=== PATIENT | male | born 1995 | race Hispanic/Latino ===

== ENCOUNTER 2020-02-23 19:53 | Emergency (ER) | payer BC ==
[~2020-02-23] VITALS: Ht 165.1 cm; Wt 117.9 kg
--- OUTSIDE RECORDS SUMMARY | 2020-02-23 19:56 | XMS REPORT | CCD ---
Author Author Auto RUTHIE Hansen [facility] Address Unknown Phone Unavailable Care Team Providers Care Commercial Singer Name Role Phone Murphy Rehman CP Allergies, Adverse Reactions, Alerts Substance Reaction Status NKDA Active Medications Medication Instructions Start Date End Date Status Zofran 4 mg, 2 mL, Route: IVP, Drug form: 10/05/201309/10 Completed INJ, ONCE, Dosing Weight 87.273, kg, Priority: STAT, Start date: 10/05/13 5:34:00, Stop date: 10/05/13 5:34:00(Same as: Zofran) Sodium Chloride 0.9% 1,000 mL, Rate: 1,000 ml/hr, Infuse 09/1010/05/2013 Completed (Bolus) IV 1,000 mL over: 1 hr, Route: IV, Dosi ng Weight 87.273 kg, Total Volume: 1,000, Priority: STAT, Start date: 10/05/13 5:34:00, Duration: 1 doses or times, Stop date: 10/05/13 6:33:00, Bolus Dose Bolus Dose Zofran ODT 4 mg oral 4 mg = 1 tab, PO, BID, Nausea and 2012 Ordered tablet, Vomiting, Dissolve tab unde r disintegrating tongue, # 10 tab, 0 Refill( s) Dissolve tab under tongue Vital Signs Most recent to oldest [Reference Range]: 1 2 Height 165.1 cm (10/05/2013 03:41:00) Temperature Oral [96.4-99.1 DegF] 98.5 DegF (10/05/2013 06:55:00) 99.1 DegF (10/05/2013 03:41:00) Systolic Blood Pressure [90-140 mmHg] 120 mmHg (10/05/2013 06:55:00) 122 mmHg (10/05/2013 03:41:00) Diastolic Blood Pressure [60-90 mmHg] 78 mmHg (10/05/2013 06:55:00) 84 mmHg (10/05/2013 03:41:00) Respiratory Rate [14-20 BRMIN] 18 BRMIN (10/05/2013 06:55:00) 18 BRMIN (10/05/2013 03:41:00) Peripheral Pulse Rate [60-100 bpm] 88 bpm (10/05/2013 06:55:00) 122 bpm *HI* (10/05/2013 03:41:00) Weight 87.273 kg (10/05/2013 03:41:00)
--- OUTSIDE RECORDS SUMMARY | 2020-02-23 19:56 | XMS REPORT | CCD ---
Author Author Auto RUTHIE Hansen [facility] Address Unknown Phone Unavailable Care Team Providers Care Trim Sawyer Name Role Phone Candelario Allison CP [phone] Allergies, Adverse Reactions, Alerts Substance Reaction Status NKDA Active Vital Signs Most recent to oldest [Reference Range]: 1 2 Height 165.10 cm (10/20/2011 18:39:00) Temperature Oral [96.8-99.7 DegF] 97.7 DegF (10/20/2011 23:55:00) 98.8 DegF (10/20/2011 18:39:00) Systolic Blood Pressure [90-138 mmHg] 134 mmHg (10/20/2011 23:55:00) 138 mmHg (10/20/2011 18:39:00) Diastolic Blood Pressure [45-84 mmHg] 75 mmHg (10/20/2011 23:55:00) 68 mmHg (10/20/2011 18:39:00) Respiratory Rate [14-20 BRMIN] 20 BRMIN (10/20/2011 23:55:00) 20 BRMIN (10/20/2011 18:39:00) Peripheral Pulse Rate [55-90 bpm] 100 bpm *HI* (10/20/2011 23:55:00) 111 bpm *HI* (10/20/2011 18:39:00) Weight 94.545 kg (10/20/2011 18:39:00)
--- OUTSIDE RECORDS SUMMARY | 2020-02-23 19:56 | XMS REPORT | Summary of Care ---
Author Author [facility] Organization [facility] Address Unknown Phone Unavailable Encounter JAD Herbert(GEETA) [id number] Date(s): 10/12/19 - 10/12/19 [facility] [address] [employer] provided by [facility] [place] [address]- Encounter Diagnosis Sinus tachycardia (Discharge Diagnosis) - 10/12/19 Fever (Discharge Diagnosis) - 10/12/19 Discharge Disposition: Home or Self Care Attending Physician: Mac Bryant MD Vital Signs 1 2 3 Most recent to oldest [Reference Range]: 100.4 DegF *HI* (10/12/19 5:36 PM) 100 DegF *HI* (10/12/19 3:13 PM) 101.7 DegF *HI* (10/12/19 1:23 PM) Temperature Oral [96.4-99.1 DegF] 147/66 mmHg *HI* (10/12/19 5:36 PM) 142/59 mmHg *HI* (10/12/19 4:29 PM) 146/70 mmHg *HI* (10/12/19 3:13 PM) Blood Pressure [90-140/60-90 mmHg] 16 BRMIN (10/12/19 5:36 PM) 15 BRMIN (10/12/19 4:29 PM) 17 BRMIN (10/12/19 3:13 PM) Respiratory Rate [14-20 BRMIN] 161 bpm *HI* (10/12/19 1:23 PM) Peripheral Pulse Rate [60-100 bpm] 118.182 kg (10/12/19 1:23 PM) Weight Problem List No data available for this section Allergies, Adverse Reactions, Alerts No Known Medication Allergies Medications Isolyte S PH-7.4 (Bolus) IV 1,000 mL, 1000 ml/hr, Infuse Over: 1 hr, Route: IV, 1,000, Drug form: SOLN, ONCE , Priority: STAT, Dosing Weight 118.182 kg, Start date: 10/12/19 13:29:00 MARINE ENGINEERING PROFESSOR, S top date: 10/12/19 13:29:00 MARINE ENGINEERING PROFESSOR, 0 Notes: (Same as: Isolyte S PH7.4, Normosol-R PH 7.4, Plasma-Lyte A ) Start Date: 10/12/19 Stop Date: 10/12/19 Status: Completed Isolyte S PH-7.4 (Bolus) IV 1,000 mL, 1000 ml/hr, Infuse Over: 1 hr, Route: IV, 1,000, Drug form: SOLN, ONCE , Priority: STAT, Dosing Weight 118.182 kg, Start date: 10/12/19 14:38:00 MARINE ENGINEERING PROFESSOR, S top date: 10/12/19 14:38:00 MARINE ENGINEERING PROFESSOR, 0 Notes: (Same as: Isolyte S PH7.4, Normosol-R PH 7.4, Plasma-Lyte A ) Start Date: 10/12/19 Stop Date: 10/12/19 Status: Completed Isolyte S PH-7.4 (Bolus) IV 1,000 mL, Route: IV, ONCE, Priority: STAT, Dosing Weight 118.182 kg, Start date: 10/12/19 16:36:00 MARINE ENGINEERING PROFESSOR, Stop date: 10/12/19 16:36:00 MARINE ENGINEERING PROFESSOR Start Date: 10/12/19 Stop Date: 10/12/19 Status: Completed Tylenol 1,000 mg, 2 tab, Route: PO, Drug form: TAB, ONCE, Dosing Weight 118.182, kg, Reshma ority: STAT, Start date: 10/12/19 13:29:00 MARINE ENGINEERING PROFESSOR, Stop date: 10/12/19 13:29:00 MARINE ENGINEERING PROFESSOR , 0 Notes: Max acetaminophen 4000 mg/day (4 gm/day). (Same as: Tylenol Extra Streng th) Start Date: 10/12/19 Stop Date: 10/12/19 Status: Completed Results Most recent to 1 oldest [Reference Range]: Neutrophils # 6.3 K/CMM [1.5-8.1 K/CMM] (10/12/19 2:05 PM) Lymphocytes # 1.2 K/CMM [1.0-5.5 K/CMM] (10/12/19 2:05 PM) Monocytes # [0.0-0.8 0.9 K/CMM K/CMM] *HI* (10/12/19 2:05 PM) Eosinophils # 0.1 K/CMM [0.0-0.5 K/CMM] (10/12/19 2:05 PM) Basophils # [0.0-0.2 0.1 K/CMM K/CMM] (10/12/19 2:05 PM) eGFR 97 mL/min/1.73m2 1 *NA* (10/12/19 2:05 PM) AGAP [10.0-20.0 16.7 mEq/L mEq/L] (10/12/19 2:05 PM) Basophils [0.0-1.0 0.7 % %] (10/12/19 2:05 PM) BUN [7-22 mg/dL] 14 mg/dL (10/12/19 2:05 PM) Calcium Lvl 8.3 mg/dL [8.5-10.5 mg/dL] *LOW* (10/12/19 2:05 PM) Chloride Lvl [95-109 103 mEq/L mEq/L] (10/12/19 2:05 PM) CO2 [24-32 mEq/L] 21 mEq/L *LOW* (10/12/19 2:05 PM) Creatinine Lvl 1.06 mg/dL [0.50-1.40 mg/dL] (10/12/19 2:05 PM) Eosinophils [0.0-4.0 1.1 % %] (10/12/19 2:05 PM) Glucose Lvl [70-99 116 mg/dL mg/dL] *HI* (10/12/19 2:05 PM) Hct [42.0-54.0 %] 42.5 % (10/12/19 2:05 PM) Hgb [14.0-18.0 g/dL] 14.9 g/dL (10/12/19 2:05 PM) Potassium Lvl 3.7 mEq/L [3.5-5.1 mEq/L] (10/12/19 2:05 PM) Lymphocytes 13.8 % [20.0-40.0 %] *LOW* (10/12/19 2:05 PM) MCH [27.0-31.0 pg] 30.0 pg (10/12/19 2:05 PM) MCHC [32.0-36.0 34.9 g/dL g/dL] (10/12/19 2:05 PM) MCV [80.0-94.0 fL] 85.8 fL (10/12/19 2:05 PM) Monocytes [2.0-12.0 10.7 % %] (10/12/19 2:05 PM) MPV [7.4-10.4 fL] 8.0 fL (10/12/19 2:05 PM) Sodium Lvl [135-145 137 mEq/L mEq/L] (10/12/19 2:05 PM) Platelet [133-450 201 K/CMM K/CMM] (10/12/19 2:05 PM) Segs [45.0-75.0 %] 73.7 % (10/12/19 2:05 PM) RBC [4.70-6.10 4.95 M/CMM M/CMM] (10/12/19 2:05 PM) RDW [11.5-14.5 %] 13.8 % (10/12/19 2:05 PM) WBC [3.7-10.4 K/CMM] 8.5 K/CMM (10/12/19 2:05 PM) 1Result Comment: The eGFR is calculated using the CKD-EPI formula. In most young, healthy individuals the eGFR will be >90 mL/min/1.73m2. The eGFR declines with age. An eGFR of 60-89 may be normal in some populations, particularly the elderly, for whom the CKD-EPI formula has not been extensively validated. Use of the eGFR is not recommended in the following populations: Individuals with unstable creatinine concentrations, including patients and those with serious co-morbid conditions. Patients with extremes in muscle mass or diet. The data above are obtained from the National Kidney Disease Education Program ( NKDEP) which additionally recommends that when the eGFR is used in patients with extremes of body mass index for purposes of drug dosing, the eGFR should be mul tiplied by the estimated BMI. 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
--- OUTSIDE RECORDS SUMMARY | 2020-02-23 19:56 | XMS REPORT | CCD ---
Author Author Auto RUTHIE Hansen [facility] Address Unknown Phone Unavailable Care Team Providers Care Boarding Specialist Name Role Phone Terry Aguilera CP Allergies, Adverse Reactions, Alerts Substance Reaction Status NKDA Active Medications Medication Instructions Start Date End Date Status Tylenol with Codeine 10 cc, PO, Q4H, PRN, 240 mL, pain, 12/10 Ordered 120 mg-12 mg/5 mL Substitution Allowed, Maint enance oral liquid Toradol 30 mg/mL 30 mg, Route: IM, Drug form: INJ, 12/11/2011 12/11/2011 Completed injectable solution ONCE, Start date: 12/11/11 8:37:00, Stop date: 12/11/11 8:37:00 Vital Signs Most recent to oldest [Reference Range]: 1 Height 165.10 cm (12/11/2011 06:39:00) Weight 92.727 kg (12/11/2011 06:39:00) Results URINALYSIS Most recent to oldest [Reference Range]: 1 UA Turbidity [Clear] Clear (12/11/2011 06:55:00) UA Color [Yellow] Yellow *NA* (12/11/2011 06:55:00) UA pH [5.0-8.0] 7.5 (12/11/2011 06:55:00) UA Spec Grav [<=1.030] 1.010 (12/11/2011 06:55:00) UA Glucose [Negative] Negative (12/11/2011 06:55:00) UA Blood [Negative] Large *ABN* (12/11/2011 06:55:00) UA Ketones [Negative] Negative *NA* (12/11/2011 06:55:00) UA Protein [Negative] Trace *ABN* (12/11/2011 06:55:00) UA Urobilinogen [0.1-1.0 EU/dL] 0.2 EU/dL (12/11/2011 06:55:00) UA Bili [Negative] Negative *NA* (12/11/2011 06:55:00) UA Leuk Est [Negative] Negative (12/11/2011 06:55:00) UA Nitrite [Negative] Negative (12/11/2011 06:55:00) UA WBC [None Seen] None Seen (12/11/2011 06:55:00) UA RBC [0-2 /HPF] 6-10 /HPF *ABN* (12/11/2011 06:55:00) UA Bacteria [None Seen /HPF] Occasional /HPF (12/11/2011 06:55:00) UA Sq Epi [Few /LPF] Few /LPF (12/11/2011 06:55:00)
--- OUTSIDE RECORDS SUMMARY | 2020-02-23 19:56 | XMS REPORT | Summary of Care ---
Author Author [facility] Organization [facility] Address Unknown Phone Unavailable Encounter JAD Herbert(GEETA) [id number] Date(s): 12/16/15 - 12/16/15 [facility] [address] [place] [address]- Discharge Diagnosis: Food poisoning Discharge Diagnosis: Acute infective gastroenteritis Discharge Disposition: Home Attending Physician: Matti Swan MD Vital Signs 1 2 3 Most recent to oldest [Reference Range]: 165.1 cm (12/16/15 4:10 PM) Height 98.5 DegF (12/16/15 10:36 PM) 99.1 DegF (12/16/15 9:05 PM) 98.2 DegF (12/16/15 4:10 PM) Temperature Oral [96.4-99.1 DegF] 125/76 mmHg (12/16/15 10:36 PM) 113/62 mmHg (12/16/15 9:05 PM) 110/62 mmHg (12/16/15 4:10 PM) Blood Pressure [90-140/60-90 mmHg] 16 BRMIN (12/16/15 10:36 PM) 18 BRMIN (12/16/15 9:05 PM) 20 BRMIN (12/16/15 4:10 PM) Respiratory Rate [14-20 BRMIN] 119 bpm *HI* (12/16/15 10:36 PM) 125 bpm *HI* (12/16/15 9:05 PM) 127 bpm *HI* (12/16/15 4:10 PM) Peripheral Pulse Rate [60-100 bpm] 100 kg (12/16/15 4:10 PM) Weight 36.69 m2 (12/16/15 4:10 PM) Body Mass Index Problem List No data available for this section Allergies, Adverse Reactions, Alerts Substance Reaction Severity Status NKDA Active Medications Bentyl 20 mg, 2 mL, Route: IM, Drug form: INJ, ONCE, Dosing Weight 100, kg, Start date: 12/16/15 16:20:00, Stop date: 12/16/15 16:20:00 Notes: (Same as: Bentyl) Start Date: 12/16/15 Stop Date: 12/16/15 Status: Completed Lomotil oral tablet 1 tab, PO, QID, PRN for loose stool, X 7 day, # 28 tab, 0 Refill(s) Start Date: 12/16/15 Stop Date: 12/23/15 Status: Ordered morphine Sulfate 4 mg, 2 mL, Route: IVP, Drug form: INJ, ONCE, Dosing Weight 100, kg, Priority: S TAT, Start date: 12/16/15 16:20:00, Stop date: 12/16/15 16:20:00 Notes: (Same as:MORPhine Sulfate) Start Date: 12/16/15 Stop Date: 12/16/15 Status: Completed ondansetron 4 mg, 2 mL, Route: IVP, Drug form: INJ, ONCE, Dosing Weight 100, kg, Priority: S TAT, Start date: 12/16/15 16:20:00, Stop date: 12/16/15 16:20:00 Notes: (Same as: Page) MEDICATION WASTE Product Size: 4 mgProduct Was alfred: ___ mg Start Date: 12/16/15 Stop Date: 12/16/15 Status: Completed promethazine 25 mg oral tablet 25 mg = 1 tab, PO, Q8H, PRN Nausea/Vomiting, X 10 day, # 30 tab, 0 Refill(s) Start Date: 12/16/15 Stop Date: 12/26/15 Status: Ordered Saline Flush 0.9% 10 mL, Route: IVP, Drug Form: INJ, Dosing Weight 100, kg, PRN, PRN Line Flush, S tart date: 12/16/15 16:20:00, Duration: 30 day, Stop date: 01/15/16 17:19:00 Notes: (Same as: BD Posiflush) Start Date: 12/16/15 Stop Date: 12/17/15 Status: Discontinued Sodium Chloride 0.9% (Bolus) IV 1,000 mL, 1,000 ml/hr, Infuse Over: 1 Hour, Route: IV, ONCE, Priority: STAT, Dos ing Weight 100 kg, Start date: 12/16/15 21:21:00, Duration: 1 doses or times, St op date: 12/16/15 21:21:00 Start Date: 12/16/15 Stop Date: 12/16/15 Status: Completed Sodium Chloride 0.9% (Bolus) IV 1,000 mL, 1000 ml/hr, Infuse Over: 1 hr, Route: IV, 1,000, Drug form: INJ, ONCE, Priority: STAT, Dosing Weight 100 kg, Start date: 12/16/15 16:20:00, Duration: 1 doses or times, Stop date: 12/16/15 16:20:00 Start Date: 12/16/15 Stop Date: 12/16/15 Status: Completed Sodium Chloride 0.9% (Bolus) IV 1,000 mL, 1,000 ml/hr, Infuse Over: 1 hr, Route: IV, ONCE, Priority: STAT, Dosin g Weight 100 kg, Start date: 12/16/15 21:12:00, Duration: 1 doses or times, Stop date: 12/16/15 21:12:00 Start Date: 12/16/15 Stop Date: 12/16/15 Status: Completed Results ELECTROLYTES Most recent to 1 oldest [Reference Range]: Sodium Lvl [135-145 136 mEq/L mEq/L] (12/16/15 4:38 PM) Potassium Lvl 4.0 mEq/L [3.5-5.1 mEq/L] (12/16/15 4:38 PM) Chloride Lvl [95-109 104 mEq/L mEq/L] (12/16/15 4:38 PM) CO2 [24-32 mEq/L] 23 mEq/L *LOW* (12/16/15 4:38 PM) AGAP [10.0-20.0 13.0 mEq/L mEq/L] (12/16/15 4:38 PM) CHEM PANEL Most recent to 1 oldest [Reference Range]: Creatinine Lvl 1.07 mg/dL [0.50-1.40 mg/dL] (12/16/15 4:38 PM) eGFR 99 mL/min/1.73m2 1 *NA* (12/16/15 4:38 PM) BUN [7-22 mg/dL] 19 mg/dL (12/16/15 4:38 PM) B/C Ratio [6-25] 18 (12/16/15 4:38 PM) Glucose Lvl [70-99 118 mg/dL mg/dL] *HI* (12/16/15 4:38 PM) Total Protein 8.7 g/dL [6.4-8.4 g/dL] *HI* (12/16/15 4:38 PM) Albumin Lvl [3.5-5.0 4.5 g/dL g/dL] (12/16/15 4:38 PM) Globulin [2.0-4.0 4.2 g/dL g/dL] *HI* (12/16/15 4:38 PM) A/G Ratio [0.7-1.6] 1.1 (12/16/15 4:38 PM) Calcium Lvl 9.1 mg/dL [8.5-10.5 mg/dL] (12/16/15 4:38 PM) ALT [0-65 unit/L] 58 unit/L (12/16/15 4:38 PM) AST [0-37 unit/L] 20 unit/L (12/16/15 4:38 PM) Alk Phos [39-136 149 unit/L unit/L] *HI* (12/16/15 4:38 PM) Bili Total [0.2-1.3 1.0 mg/dL mg/dL] (12/16/15 4:38 PM) Lipase Lvl [73-393 116 unit/L unit/L] (12/16/15 4:38 PM) 1Result Comment: The eGFR is calculated [...] be mul tiplied by the estimated BMI. HEMATOLOGY Most recent to 1 oldest [Reference Range]: WBC [3.7-10.4 K/CMM] 17.1 K/CMM *HI* (12/16/15 4:38 PM) RBC [4.70-6.10 6.20 M/CMM M/CMM] *HI* (12/16/15 4:38 PM) Hgb [14.0-18.0 g/dL] 17.7 g/dL (12/16/15 4:38 PM) Hct [42.0-54.0 %] 52.3 % (12/16/15 4:38 PM) MCV [80.0-94.0 fL] 84.4 fL (12/16/15 4:38 PM) MCH [27.0-31.0 pg] 28.5 pg (12/16/15 4:38 PM) MCHC [32.0-36.0 33.8 g/dL g/dL] (12/16/15 4:38 PM) RDW [11.5-14.5 %] 13.7 % (12/16/15 4:38 PM) Platelet [133-450 261 K/CMM K/CMM] (12/16/15 4:38 PM) MPV [7.4-10.4 fL] 8.2 fL (12/16/15 4:38 PM) Segs [45.0-75.0 %] 89.9 % *HI* (12/16/15 4:38 PM) Lymphocytes 5.1 % [20.0-40.0 %] *LOW* (12/16/15 4:38 PM) Monocytes [2.0-12.0 4.5 % %] (12/16/15 4:38 PM) Eosinophils [0.0-4.0 0.3 % %] (12/16/15 4:38 PM) Basophils [0.0-1.0 0.2 % %] (12/16/15 4:38 PM) Segs-Bands # 15.4 K/CMM [1.5-8.1 K/CMM] *HI* (12/16/15 4:38 PM) Lymphocytes # 0.9 K/CMM [1.0-5.5 K/CMM] *LOW* (12/16/15 4:38 PM) Monocytes # [0.0-0.8 0.8 K/CMM K/CMM] (12/16/15 4:38 PM) Immunizations No data available for this section Procedures No data available for this section Social History Social History Type Response Smoking Status Never smoker; 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
--- OUTSIDE RECORDS SUMMARY | 2020-02-23 19:56 | XMS REPORT | Continuity of Care Document ---
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 Name Role Phone Web Designed Ro[employer] Information Exchange Unavailable Un available Problems Problem Status Onset Date Classification Date Reported Comments Source Tachycardia, unspecified 10/12/2019 10/14/2019 [facility] Fever, unspecified 10/12/2019 10/14/2019 [facility] SVT Active 0 10/12/2019 [facility] Discharge Diagnosis: Food poisoning 12/16/2015 12/19/2015 [facility] Discharge Diagnosis: Acute infective gastroenteritis 12/16/2015 12/19/2015 [facility] S.O.B Active 12/16/2015 [facility] VOMITING Active 10/05/2013 [facility] KIDNEY STONES Active 12/11/2011 [facility] LT SIDE PAIN Active 12/11/2011 [facility] HEADACHE Active 10/20/2011 [facility] Medications Medication Details Route Status Patient Instructions Ordering Provider Order Date Source Isolyte S PH-7.4 (Bolus) IV 1, 000 mL, Route: IV, ONCE, Priority: STAT, Dosing Weight 118.182 kg, Start date: 10/12/19 16:36:00 MICROBIOLOGY PROFESSOR, Stop date: 10/12/19 16:36:00 MICROBIOLOGY PROFESSOR Inactive 10/12/2019 [facility] nter Isolyte S PH-7.4 (Bolus) IV No eric: (Same as: Isolyte S PH7.4, Normosol-R PH 7.4, Plasma-Lyte A ) Inactive 10/12/2019 [facility] nter Isolyte S PH-7.4 (Bolus) IV No eric: (Same as: Isolyte S PH7.4, Normosol-R PH 7.4, Plasma-Lyte A ) Inactive 10/12/2019 [facility] nter Tylenol Notes: Max acetaminoph en 4000 mg/day (4 gm/day). (Same as: Tylenol Extra Strength) Inactive 10/12/2019 [facility] nter Sodium Chloride 0.154 MEQ/ML Injectable Solution 1,000 mL, 1,000 ml/hr, Infuse Over: 1 Hour, Route: IV, ONCE, Priority: STAT, Dosing Weight 100 kg, Start date: 12/16/15 21:21:00, Duration: 1 doses or times, Stop date: 12/16/15 21:21:00 Inactive 12/17/2015 [facility] Sodium Chloride 0.154 MEQ/ML Injectable Solution 1,000 mL, 1,000 ml/hr, Infuse Over: 1 hr, Route: IV, ONCE, Priority: STAT, Dosing Weight 100 kg, Start date: 12/16/15 21:12:00, Duration: 1 doses or times, Stop date: 12/16/15 21:12:00 Inactive 12/17/2015 [facility] Atropine Sulfate 0.025 MG / Diphenoxylat e Hydrochloride 2.5 MG Oral Tablet [Lomotil] 1 tab, PO, QID, PRN for loose stool, X 7 day, # 28 tab, 0 Refill(s) Active 12/17/2015 [facility] promethazine 25 mg oral tablet 25 mg = 1 tab, PO, Q8H, PRN Nausea/Vomiting, X 10 day, # 30 tab, 0 Refill(s) Active 12/17/2015 [facility] Bentyl Notes: (Same as: Bentyl) Inactive 12/16/2015 [facility] Morphine Notes: (Same as:MORPh ine Sulfate) Inactive 12/16/2015 [facility] Ondansetron Notes: (Same as: Juwan lopez) MEDICATION WASTE Product Size: 4 mg Product Wasted: ___ mg Inactive 12/16/2015 [facility] Sodium Chloride 0.154 MEQ/ML Injectable Solution 1,000 mL, 1000 ml/hr, Infuse Over: 1 hr, Route: IV, 1,000, Drug form: INJ, ONCE, Priority: STAT, Dosing Weight 100 kg, Start date: 12/16/15 16:20:00, Duration: 1 doses or times, Stop date: 12/16/15 16:20:00 Inactive 12/16/2015 [facility] Saline Flush 0.9% Notes: (Same as: BD Posiflush) No Longer Active 12/16/2015 [facility] Zofran ODT 4 mg oral tablet, disintegrating 4 mg = 1 tab, PO, BID, Nausea and Vomiting, Dissolve tab under tongue, # 10 tab, 0 Refill(s)Dissolve tab under tongue Active Pili jones 10/05/2013 [facility] Zofran 4 mg, 2 mL, Route: IVP, Drug form: INJ, ONCE, Dosing Weight 87.273, kg, Priority: STAT, Start date: 10/05/13 5:34:00, Stop date: 10/05/13 5:34:00(Same as: Zofran) Inactive hernando 10/05/2013 [facility] Sodium Chloride 0.9% (Bolus) IV 1,000 mL 1,000 mL, Rate: 1,000 ml/hr, Infuse over: 1 hr, Route: IV, Dosing Weight 87.273 kg, Total Volume: 1,000, Priority: STAT, Start date: 10/05/13 5:34:00, Duration: 1 doses or times, Stop date: 10/05/13 6:33:00, Bolus DoseBolus Dose Inactive [facility] 10/05/2013 [facility] Toradol 30 mg/mL injectable solution 60 mg, Route: IM, Drug form: INJ, ONCE, Start date: 12/11/11 21:41:00, Stop date: 12/11/11 21:41:00 IM No Longer Active Mormon 12/12/2011 [facility] Toradol 30 mg/mL injectable solution 30 mg, Route: IV, Drug form: INJ, ONCE, Start date: 12/11/11 21:35:00, Stop date: 12/11/11 21:35:00 IV No Longer Active Mormon 12/12/2011 [facility] Toradol 10 mg oral tablet 10 m g, 1 tab, PO, Q4H, PRN, 30 tab, Pain, Substitution Allowed, TAB PO Active Nakia 12/12/2011 [facility] Flomax 0.4 mg oral capsule 0.4 mg, 1 cap, PO, Daily, 10 cap, Substitution Allowed, CAP PO Active Nakia 12/12/2011 [facility] [place] 5/325 oral tablet 1-2 ta b, PO, Q4-6H, PRN, 30 tab, Pain, Substitution Allowed, Maintenance PO Active Nakia m 12/12/2011 [facility] Tylenol with Codeine 120 mg-12 mg/5 mL oral liquid 10 cc, PO, Q4H, PRN, 240 mL, pain, Substitution Allowed, Maintenance PO Active Nriagu 12/11/2011 [facility] Toradol 30 mg/mL injectable solution 30 mg, Route: IM, Drug form: INJ, ONCE, Start date: 12/11/11 8:37:00, Stop date: 12/11/11 8:37:00 IM No Longer Active Nriagu 12/2011 [facility] Allergies, Adverse Reactions, Alerts Substance Category Reaction Severity Reaction type Status Date Reported Comments Source No Known Medication Allergies Assertion Drug aller gy [facility] Immunizations No Data Provided for This Section Results Order Name Results Value Reference Range Date Interpretation Comments Source ELECTROLYTES AGAP 16.7 10.0 - 20.0 10/12/2019 [facility] ELECTROLYTES Glucose Lvl 116 70 - 99 10/12/2019 [facility] ELECTROLYTES BUN 14 7 - 22 10/12/2019 [facility] ELECTROLYTES Creatinine Lvl 1.0 6 0.50 - 1.40 10/12/2019 [facility] ELECTROLYTES Sodium Lvl 137 135 - 145 10/12/2019 [facility] ELECTROLYTES Potassium Lvl 3.7 3.5 - 5.1 10/12/2019 [facility] ELECTROLYTES Chloride Lvl 103 95 - 109 10/12/2019 [facility] ELECTROLYTES CO2 21 24 - 32 10/12/2019 [facility] ELECTROLYTES Calcium Lvl 8.3 8.5 - 10.5 10/12/2019 [facility] ELECTROLYTES eGFR 97 10/12/2019 Result Comment: The eGFR is calculated using the [...] from the National Kidney Disease Education Program (NKDEP) which additionally recommends that when the eGFR is used in patients with extremes of body mass index for purposes of drug dosing, the eGFR should be multiplied by the estimated BMI. [facility] HEMATOLOGY WBC 8.5 3.7 - 10.4 10/12/2019 [facility] HEMATOLOGY RBC 4.95 4.70 - 6.10 10/12/2019 [facility] HEMATOLOGY Hgb 14.9 14.0 - 18.0 10/12/2019 [facility] HEMATOLOGY Hct 42.5 42.0 - 54.0 10/12/2019 [facility] HEMATOLOGY MCV 85.8 80.0 - 94.0 10/12/2019 [facility] HEMATOLOGY MCH 30.0 27.0 - 31.0 10/12/2019 [facility] HEMATOLOGY MCHC 34.9 32.0 - 36.0 10/12/2019 [facility] HEMATOLOGY RDW 13.8 11.5 - 14.5 10/12/2019 [facility] HEMATOLOGY Platelet 201 133 - 450 10/12/2019 [facility] HEMATOLOGY MPV 8.0 7.4 - 10.4 10/12/2019 [facility] HEMATOLOGY Segs 73.7 45.0 - 75.0 10/12/2019 [facility] HEMATOLOGY Lymphocytes 13.8 20.0 - 40.0 10/12/2019 [facility] HEMATOLOGY Monocytes 10.7 2.0 - 12.0 10/12/2019 [facility] HEMATOLOGY Eosinophils 1.1 0.0 - 4.0 10/12/2019 [facility] HEMATOLOGY Basophils 0.7 0.0 - 1.0 10/12/2019 [facility] HEMATOLOGY Neutrophils # 6.3 1.5 - 8.1 10/12/2019 [facility] HEMATOLOGY Lymphocytes # 1.2 1.0 - 5.5 10/12/2019 [facility] HEMATOLOGY Monocytes # 0.9 0.0 - 0.8 10/12/2019 [facility] HEMATOLOGY Eosinophils # 0.1 0.0 - 0.5 10/12/2019 [facility] HEMATOLOGY Basophils # 0.1 0.0 - 0.2 10/12/2019 [facility] CHEM PANEL Lipase Lvl 116 73 - 393 12/16/2015 [facility] CHEM PANEL eGFR 99 12/16/2015 Result Comment: The eGFR is calculated using the [...] from the National Kidney Disease Education Program (NKDEP) which additionally recommends that when the eGFR is used in patients with extremes of body mass index for purposes of drug dosing, the eGFR should be multiplied by the estimated BMI. [facility] CHEM PANEL CO2 23 24 - 32 12/16/2015 [facility] CHEM PANEL Calcium Lvl 9.1 8.5 - 10.5 12/16/2015 [facility] CHEM PANEL Total Protein 8.7 6.4 - 8.4 12/16/2015 [facility] CHEM PANEL Chloride Lvl 104 95 - 109 12/16/2015 [facility] CHEM PANEL Potassium Lvl 4.0 3.5 - 5.1 12/16/2015 [facility] CHEM PANEL Creatinine Lvl 1.07 0.50 - 1.40 12/16/2015 [facility] CHEM PANEL Sodium Lvl 136 135 - 145 12/16/2015 [facility] CHEM PANEL Glucose Lvl 118 70 - 99 12/16/2015 [facility] CHEM PANEL BUN 19 7 - 22 12/16/2015 [facility] CHEM PANEL ALT 58 0 - 65 12/16/2015 [facility] CHEM PANEL AST 20 0 - 37 12/16/2015 [facility] CHEM PANEL Alk Phos 149 39 - 136 12/16/2015 [facility] CHEM PANEL Bili Total 1.0 0.2 - 1.3 12/16/2015 [facility] CHEM PANEL Albumin Lvl 4.5 3.5 - 5.0 12/16/2015 [facility] CHEM PANEL B/C Ratio 18 6 - 25 12/16/2015 [facility] CHEM PANEL Globulin 4.2 2.0 - 4.0 12/16/2015 [facility] CHEM PANEL A/G Ratio 1.1 0.7 - 1.6 12/16/2015 [facility] CHEM PANEL AGAP 13.0 10.0 - 20.0 12/16/2015 [facility] HEMATOLOGY Monocytes 4.5 2.0 - 12.0 12/16/2015 [facility] HEMATOLOGY Eosinophils 0.3 0.0 - 4.0 12/16/2015 [facility] HEMATOLOGY Basophils 0.2 0.0 - 1.0 12/16/2015 [facility] HEMATOLOGY Lymphocytes 5.1 20.0 - 40.0 12/16/2015 [facility] HEMATOLOGY Segs 89.9 45.0 - 75.0 12/16/2015 [facility] HEMATOLOGY Lymphocytes # 0.9 1.0 - 5.5 12/16/2015 [facility] HEMATOLOGY Monocytes # 0.8 0.0 - 0.8 12/16/2015 [facility] HEMATOLOGY Segs-Bands # 15.4 1.5 - 8.1 12/16/2015 [facility] MPV 8.2 7.4 - 10.4 12/16/2015 [facility] RDW 13.7 11.5 - 14.5 12/16/2015 [facility] MCHC 33.8 32.0 - 36.0 12/16/2015 [facility] Platelet 261 133 - 450 12/16/2015 [facility] MCH 28.5 27.0 - 31.0 12/16/2015 [facility] MCV 84.4 80.0 - 94.0 12/16/2015 [facility] Hgb 17.7 14.0 - 18.0 12/16/2015 [facility] HEMATOLOGY Hct 52.3 42.0 - 54.0 12/16/2015 [facility] WBC 17.1 3.7 - 10.4 12/16/2015 [facility] RBC 6.20 4.70 - 6.10 12/16/2015 [facility] URINALYSIS UA Bacteria Occas ional /HPF (12/11/2011 06:55:00) None S een 12/11/2011 Normal [facility] URINALYSIS UA RBC 6-10 /HPF *ABN* (12/11/2011 06:55:00) 0 - 2 12/11/2011 ABN [facility] URINALYSIS UA WBC None Seen (12/11/2011 06:55:00) None S een 12/11/2011 Normal [facility] URINALYSIS UA Sq Epi Few / LPF (12/11/2011 06:55:00) Few 12/11/2011 Normal [facility] URINALYSIS UA Spec Grav 1.010 <=1.030 12/11/2011 Normal [facility] URINALYSIS UA pH 7.5 5.0 - 8.0 12/11/2011 Normal [facility] URINALYSIS UA Protein Trace *ABN* (12/11/2011 06:55:00) Negati ve 12/11/2011 ABN [facility] URINALYSIS UA Glucose Negat kirill (12/11/2011 06:55:00) Negati ve 12/11/2011 Normal [facility] URINALYSIS UA Ketones Negat kirill *NA* (12/11/2011 06:55:00) Negati ve 12/11/2011 NA [facility] URINALYSIS UA Bili Negat kirill *NA* (12/11/2011 06:55:00) Negati ve 12/11/2011 NA [facility] URINALYSIS UA Blood Large *ABN* (12/11/2011 06:55:00) Negati ve 12/11/2011 ABN [facility] URINALYSIS UA Leuk Est Negat kirill (12/11/2011 06:55:00) Negati ve 12/11/2011 Normal [facility] URINALYSIS UA Nitrite Negat kirill (12/11/2011 06:55:00) Negati ve 12/11/2011 Normal [facility] URINALYSIS UA Urobilinogen 0.2 0.1 - 1.0 12/11/2011 Normal [facility] URINALYSIS UA Color Yello w *NA* (12/11/2011 06:55:00) Yellow 12/11/2011 NA [facility] URINALYSIS UA Turbidity Clear (12/11/2011 06:55:00) Clear 12/11/2011 Normal [facility] Pathology Reports No Data Provided for This Section Diagnostic Reports Report Value Date Source Chest 1view DX EXAM: XR CHEST 1 VIEW DATE: 10/12/2019 at 1420 hours INDICATION: - cough COMPARISON: 12/16/2015 TECHNIQUE: Upright AP chest. FINDINGS: Lines, tubes and hardware: None. Lungs and pleura: Pulmonary vascularity is normal. The lungs are clear. The costophrenic sulci are sharp without effusion. No pneumothorax is identified. Heart and mediastinum: The heart size is normal for technique. The mediastinal contours are normal. Bones, soft tissues: No acute abnormality. IMPRESSION: No acute abnormality. 10/12/2019 [facility] Chest 2 views DX Patient Name: RUTHIE CORONA Age: 20 years y/o Male MR: [id number] Study: Chest 2 views DX dated 12/16/2015. Clinical Indication: Shortness of Breath Comparison: 06/06/2010. Cardiac and mediastinal structures are stable. No focal infiltrate identified within the lungs, no edema, no pleural effusions and no pneumothorax. SL: [id number] 12/16/2015 [facility] Consultation Notes No Data Provided for This Section Discharge Summaries No Data Provided for This Section History and Physicals No Data Provided for This Section Vital Signs Vital Sign Value Date Comments Source Temperature Oral (F) 100.4 F 10/12/2019 [facility] Respitory Rate 16 10/12/2019 [facility] Systolic (mm Hg) 147 10/12/2019 [facility] Diastolic (mm Hg) 66 10/12/2019 [facility] Respitory Rate 15 10/12/2019 [facility] Systolic (mm Hg) 142 10/12/2019 [facility] Diastolic (mm Hg) 59 10/12/2019 [facility] Respitory Rate 17 10/12/2019 [facility] Systolic (mm Hg) 146 10/12/2019 [facility] Diastolic (mm Hg) 70 10/12/2019 [facility] Temperature Oral (F) 100 F 10/12/2019 [facility] Heart Rate 161 10/12/2019 [facility] Temperature Oral (F) 101.7 F 10/12/2019 [facility] Weight 118.182 10/12/2019 [facility] Respitory Rate 16 12/17/2015 [facility] Heart Rate 119 12/17/2015 [facility] Systolic (mm Hg) 125 12/17/2015 [facility] Diastolic (mm Hg) 76 12/17/2015 [facility] Temperature Oral (F) 98.5 F 12/17/2015 [facility] Temperature Oral (F) 99.1 F 12/17/2015 [facility] Respitory Rate 18 12/17/2015 [facility] Heart Rate 125 12/17/2015 [facility] Systolic (mm Hg) 113 12/17/2015 [facility] Diastolic (mm Hg) 62 12/17/2015 [facility] BMI Calculated 36.69 12/16/2015 [facility] Weight 100 12/16/2015 [facility] Temperature Oral (F) 98.2 F 12/16/2015 [facility] Respitory Rate 20 12/16/2015 [facility] Height 165.1 cm 12/16/2015 [facility] Heart Rate 127 12/16/2015 [facility] Systolic (mm Hg) 110 12/16/2015 [facility] Diastolic (mm Hg) 62 12/16/2015 [facility] Heart Rate 88 10/05/2013 [facility] Respitory Rate 18 10/05/2013 [facility] Temperature Oral (F) 98.5 F 10/05/2013 [facility] Diastolic (mm Hg) 78 10/05/2013 [facility] Systolic (mm Hg) 120 10/05/2013 [facility] Height 165.1 cm 10/05/2013 [facility] Weight 87.273 10/05/2013 [facility] Temperature Oral (F) 99.1 F 10/05/2013 [facility] Heart Rate 122 10/05/2013 [facility] Respitory Rate 18 10/05/2013 [facility] Systolic (mm Hg) 122 10/05/2013 [facility] Diastolic (mm Hg) 84 10/05/2013 [facility] Weight 92.727 12/12/2011 [facility] Height 165.10 cm 12/12/2011 [facility] Weight 92.727 12/11/2011 [facility] Height 165.10 cm 12/11/2011 [facility] Heart Rate 100 10/21/2011 [facility] Temperature Oral (F) 97.7 F 10/21/2011 [facility] Systolic (mm Hg) 134 10/21/2011 [facility] Diastolic (mm Hg) 75 10/21/2011 [facility] Respitory Rate 20 10/21/2011 [facility] Weight 94.545 10/21/2011 [facility] Height 165.10 cm 10/21/2011 [facility] Diastolic (mm Hg) 68 10/21/2011 [facility] Systolic (mm Hg) 138 10/21/2011 [facility] Respitory Rate 20 10/21/2011 [facility] Heart Rate 111 10/21/2011 [facility] Temperature Oral (F) 98.8 F 10/21/2011 [facility] Encounters Location Location Details Encounter Type Encounter Number Reason For Visit Attending Provider ADM Date DC Date Status Source [facility] Emergency [id number] LENCHO REDD 201110/21/[address] [facility] Emergency [id number] CHRISTOPHER ART 12/11/2011 12/11/2011 Discharged [facility] Emergency [id number] OZIEL RAGLAND 12/11/2011 12/11/2011 Discharged [facility] Emergency [id number] DEVIN BARNETT 10/05/2013 10/05/2013 Discharged [facility] [id number] 05 Matti Swan 12/16/2015 12/17/2015 [facility] Emergency [id number] Mac Bryant 10/12/2019 10/13/2019 [facility] Procedures No Data Provided for This Section Assessment and Plan No Data Provided for This Section Plan of Care No Data Provided for This Section Social History Social History Date Source Social History TypeResponse Smoking Status Never smoker; Type: Cigarettes; Exposure to Tobacco Smoke None; Cigarette Smoking Last 365 Days No; Reg Smoking Cessation Counseling No entered on: 10/12/19 10/12/2019 [facility] Social History TypeResponse Smoking Status Never smoker; Type: Cigarettes; Exposure to Tobacco Smoke None; Cigarette Smoking Last 365 Days No; Reg Smoking Cessation Counseling No 12/17/2015 [facility] Family History No Data Provided for This Section Advance Directives No Data Provided for This Section Functional Status No Data Provided for This Section
--- OUTSIDE RECORDS SUMMARY | 2020-02-23 19:56 | XMS REPORT | CCD ---
Author Author Auto RUTHIE Hansen [facility] Address Unknown Phone Unavailable Care Team Providers Care Customer Care Team Coach Name Role Phone Reji Vickers CP Allergies, Adverse Reactions, Alerts Substance Reaction Status NKDA Active Medications Medication Instructions Start Date End Date Status [place] 5/325 oral 1-2 tab, PO, Q4-6H, PRN, 30 tab, 12/11/2011 0 12/16/2011 Ordered tablet Pain, Substitution Allowed, Maintenance Toradol 30 mg/mL 30 mg, Route: IV, Drug form: INJ, 12/11/2011 12/11/2011 Discontinued injectable solution ONCE, Start date: 12/11/11 21:35:00, Stop date: 12/11/11 21:35:00 Toradol 30 mg/mL 60 mg, Route: IM, Drug form: INJ, 12/11/2011 12/11/2011 Completed injectable solution ONCE, Start date: 12/11/11 21:41:00, Stop date: 12/11/11 21:41:00 Toradol 10 mg oral 10 mg, 1 tab, PO, Q4H, PRN, 30 tab, 2011 Ordered tablet Pain, Substitution Allowed, TAB Flomax 0.4 mg oral 0.4 mg, 1 cap, PO, Daily, 10 cap, 12/11/19 12 Ordered capsule Substitution Allowed, CAP Vital Signs Most recent to oldest [Reference Range]: 1 Height 165.10 cm (12/11/2011 21:10:00) Weight 92.727 kg (12/11/2011 21:10:00)
[2020-02-23] MEDS ORDERED: SODIUM CHLORIDE 0.9% 1000ML 1,000 ML IV STA (20:24)
[2020-02-23] MEDS ORDERED: SODIUM CHLORIDE FLUSH 10 ML SYR INJ PRN (20:30)
[2020-02-23] MEDS ORDERED: LORAZEPAM INJ 2 MG/ML VIAL IV ONE (20:30)
[2020-02-23] MEDS ORDERED: SODIUM CHLORIDE 0.9% 1000ML 1,000 ML ONE (20:34)
[2020-02-23] MEDS ORDERED: LORAZEPAM INJ 2 MG/ML VIAL ONE (20:34)
[2020-02-23] MEDS ORDERED: POTASSIUM CHLORIDE 20 MEQ TAB CR PO STA (20:39)
--- NOTE | 2020-02-23 20:39 | Emergency Department Note ---
History of Present Illnes History of Present Illness Chief Complaint: room spining/lightheadedness History of Present Illness This is a 24 year old male. was doing well prior to this. then rooming spinning, n/v x1, then lightheadedness, left ear fullness, then lightheadness, then anxiety attack Historian: Patient Arrival Mode: Car History limited by: condition of the patient (normal) Delivery Technician Required: No Onset (how long ago): day(s) (5) Location: see hpi Quality: mild to moderate Radiation: non-radiation Severity: moderate Onset quality: gradual Timing of current episode: intermittent Progression: unchanged Chronicity: new Context: recent illness, recent surgery, recent immobilization, trauma/injury, new medications, hx of DVT/PE, non-compliance w/ medications Relieving factors: rest Exacerbating factors: movement Associated symptoms: nausea/vomiting Treatments prior to arrival: none Past Medical/Family History Physician Review I have reviewed the patient's past medical and family history. Any updates have been documented here. Past Medical History Recent Fever: No Clinical Suspicion of Infectio: No New/Unexplained Change in Ment: No Past Medical History: None Past Surgical History: None Social History Smoking Cessation: Never Smoker Counseling Performed: No Alcohol Use: None Any Illegal Drug Use: No TB Exposure/Symptoms: No Physically hurt or threatened: No Other Last Tetanus: UNK Any Pre-Existing Lines (PICC,: No Is patient up to date on immun: No Last Flu: UNK Last Pneumovax: UNK Review of Systems Review of Systems Constitutional: no symptoms EENTM: as per HPI Cardiovascular: no symptoms Respiratory: no symptoms Gastrointestinal: as per HPI Genitourinary: no symptoms Musculoskeletal: no symptoms Neurological: as per HPI Psychological: no symptoms Endocrine: no symptoms Hematological/Lymphatic: no symptoms Review of other systems All other systems reviewed and negative. Physical Exam Related Data Allergies: Coded Allergies: No Known Allergies (Unverified , 02/23/20) Triage Vital Signs Vital Signs Date Time Temp Pulse Resp B/P (MAP) Pulse Ox O2 Delivery O2 Flow Rate FiO2 02/23/20 20:05 99.0 138 18 151/70 100 Physical Exam CONSTITUTIONAL Constitutional: well-developed, well-nourished HENT HENT: normocephalic, atraumatic, oropharynx clear/moist, nose normal, other (dry mm) HENT L/R: left ext ear normal, right ext ear normal, left bulging TM (erythema) EYES Eyes: PERRL, conjunctivae normal, EOM normal (fatigueable horizontal nystagmus) NECK Neck: ROM normal PULMONARY Pulmonary: effort normal, breath sounds normal CARDIOVASCULAR Cardiovascular: regular rhythm, heart sounds normal, capillary refill normal, normal rate GASTROINTESTINAL Abdominal: soft, nontender, bowel sounds normal GENITOURINARY Genitourinary: exam deferred SKIN Skin: warm, dry MUSCULOSKELETAL Musculoskeletal: ROM normal NEUROLOGICAL Neurological: alert, oriented x 3, no gross motor or sensory deficits, other ( fatigueable horizontal nystagmus) PSYCHOLOGICAL Psychological: mood/affect normal, judgement normal Results Laboratory Lab results reviewed: Yes (normal cbc and cmp except k=3.2) Diagnostics Tests Diagnostic test(s) reviewed: Yes (ekg sinus tachycardia, hr 131, normal axis, normal st/twaves) Critical Care Time Subsequent provider I assumed direction of critical care for this patient from another provider of my specialty. Assessment & Plan Assessment & Plan Problems: (1) Vertigo (2) Dehydration (3) Anxiety (4) Otitis media (5) Hypokalemia Assessment & Plan meclizine, azithromycin,drink plenty of water, eat plenty of bananas. follow up with your family doctor Reassessment Reassessment time: 21:05 Reassessment symptoms resolved Depart Disposition: HOME, SELF-CARE Last Vital Signs Date Time Temp Pulse Resp B/P (MAP) Pulse Ox O2 Delivery O2 Flow Rate FiO2 02/23/20 20:05 99.0 138 18 151/70 100 ANGELA COREY February 23, 2020 20:39
[2020-02-23] MEDS ORDERED: POTASSIUM CHLORIDE 20 MEQ TAB CR PO ONE (20:59)
== END 2020-02-23 21:30 | disposition home or self-care (01) ==
LOC: FSED 19:53
DX: R42 Dizziness and giddiness (principal); H66.92 Otitis media, unspecified, left ear; E86.0 Dehydration; E87.6 Hypokalemia; F41.9 Anxiety disorder, unspecified
CPT/HCPCS: 80053; 85025; 93005; 99284